=== PATIENT | male | born 1935 | race Caucasian/White ===

== ENCOUNTER 2020-04-12 20:31 | Inpatient (IN) ==
[2020-04-12 21:07] LABS: Hematocrit (blood only) 40.1 % (42-52); Hemoglobin 12.8 g/dL (14.0-18.0); Mean Corpuscular Hemoglobin 31.9 pg (25-34); Mean Corpuscular Hgb Conc 31.9 g/dL (32-36); Mean Platelet Volume 9.9 fL (7.4-10.4); Nucleated RBC # (auto) 0.05 K/uL (0-0); Nucleated RBC % (auto) 0.2 %; Platelet Count 489 K/uL (130-400); RDW Coefficient of Variation 17.6 % (11.5-14.5); RDW Standard Deviation 64.3 fL (36.4-46.3); Red Blood Count 4.01 M/uL (4.7-6.1); White Blood Count 27.06 K/uL (4.8-10.8)
[2020-04-12] MEDS ORDERED: PIPERACILL/TAZOBAC CONSULT ACTIVE PRN (21:17)
[2020-04-12] MEDS ORDERED: DEXAMETHASONE SOD INJ 10 MG/ML VIAL IV ONE (21:17)
[2020-04-12] MEDS ORDERED: PIPERACILLIN/TAZOBACTAM 4.5 GM/120 ML BAG IV ONE (21:17)
[2020-04-12 21:24] LABS: Albumin Level 3.1 gm/dl (3.4-5.0); Calcium 8.4 mg/dl (8.5-10.1); Creatinine Clr Calc Pharmacy 60.5 ml/min; Est GFR (African American) 92.9; Est GFR (Non-African American) 80.2; Magnesium 1.8 mg/dl (1.8-2.4); Potassium 4.7 mmol/L (3.5-5.1)
[2020-04-12 21:25] LABS: INR 3.9 (0.9-1.1); Partial Thromboplastin Ratio 1.6; Partial Thromboplastin Time 43.7 Seconds (21.0-31.0); Prothrombin Time 38.2 Seconds (9.0-12.0)
[2020-04-12 21:29] LABS: Albumin Globulin Ratio 0.6 (0.9-2); Bilirubin,Total 0.6 mg/dl (0.2-1); Total Protein 8.1 gm/dl (6.4-8.2); Troponin I 0.024 ng/ml (0-0.045)
[2020-04-12 21:45] LABS: Basophils # (auto) 0.03 K/uL (0-0.2); Basophils % (auto) 0.1 %; Eosinophils # (auto) 0.05 K/uL (0-0.5); Eosinophils % (auto) 0.2 %; Immature Granulocytes # (auto) 0.09 K/uL (0.00-0.02); Immature Granulocytes % (auto) 0.3 %; Lymphocytes % (auto) 4.1 %; Monocytes # (auto) 1.18 K/uL (0.11-0.59); Monocytes % (auto) 4.4 %; Neutrophils # (auto) 24.61 K/uL (1.4-6.5); Neutrophils % (auto) 90.9 %
--- NOTE | 2020-04-12 21:55 | Emergency Department Note ---
Impression & Plan Respiratory failure, Pulmonary edema, Pneumonia ED Provider Note NAME: CELY SIMON AGE: 84 SEX: M : 1935 ARRIVES VIA: Ambulance INFORMANT: Patient, patient's son ED PROVIDER(S): Francisco Redding DO CHIEF COMPLAINT: Chest pain HPI: The patient is an 84-year-old male who presented to the emergency department for evaluation of difficulty breathing and chest pain. The patient started to describe difficulty breathing earlier today. His symptoms worsened acutely prior to arrival. The patient arrived via ambulance. He was very tachypneic and was unable to give most of the history. His son did present to be with him and gives most of the history. Apparently patient does have a history of tobacco use and COPD but also has a history of valve replacement. He has no specific history of pulmonary edema or CHF according to the patient's son. He complains of right-sided chest pain. He denies having any fever or cou gh. He denies having any lower extremity edema which is worsened compared to previous. He does have a history of atrial fibrillation and takes Coumadin. He states he has been compliant with his medications. He states his symptoms are moderate to severe at this time. He states his symptoms are worsened with any exertion whatsoever. ROS: See above HPI for pertinent positives & negatives. A total of 10 systems reviewed and were otherwise negative. PAST MEDICAL HISTORY: See Below PAST SURGICAL HISTORY: See Below FAMILY HISTORY: See Below SOCIAL HISTORY: See Below HOME MEDICATIONS: See Below ALLERGIES: See Below VITALS: See Below PHYSICAL EXAMINATION: GENERAL: The patient is awake and alert. He is very anxious appearing and appears to be having severe difficulty breathing. EYES: The conjunctivae are clear. The pupils are round and reactive. EARS, NOSE, MOUTH AND THROAT: The nose is without any evidence of any deformity. NECK: The neck is nontender and supple. RESPIRATORY: Diminished breath sounds are noted throughout. There were rales in all lung booth. Significant retractions and conversational dyspnea was noted. CARDIOVASCULAR: Tachycardic and irregular rhythm was noted to auscultation.. GASTROINTESTINAL: The abdomen is soft. Abdomen is nontender. MUSCULOSKELETAL/EXTREMITIES: There is no evidence of gross deformity full range of motion is noted in the hips and shoulders. SKIN: Skin is cool and dry. There is pedal edema bilaterally. NEUROLOGIC: Patient is awake alert and oriented x3. MEDICAL DECISION MAKING: The patient is an 84-year-old male who presented to the emergency department by ambulance for an evaluation of shortness of breath. 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 The patient also has a chest x-ray that I feel is consistent with pneumonia. I discussed the patient's laboratory and radiographic studies with him and his son. He was treated with BiPAP. He was also treated with IV antibiotics and IV Decadron. He was reevaluated multiple times. The patient's health is very poor. He does have significant cardiac history as well. His EKG is very abnormal but I am unsure if this is new as we do not have an old EKG. I discussed this case with the on-call [facility] hospitalist. They will evaluate the patient in the emergency department for further management and disposition. The patient was also treated with his pain medication. He has chronic back pain. He has a history of metastatic colon cancer. Triage Nursing notes reviewed. Prior medical records reviewed Vital Signs: reviewed and remarkable for tachypnea, hypoxia, tachycardia, and elevated blood pressure. Differential diagnosis: Reactive airway disease, pneumonia, pneumothorax, COPD, CHF, infections, cardiac ischemia, pulmonary embolism, musculoskeletal, gastrointestinal, as well as other pathologies. ER treatment provided: See below Diagnostics interpreted by me: ECG: EKG was obtained in the emergency department. My interpretation is atrial fibrillation at 111 bpm. There were no PVCs noted. Incomplete left bundle branch block pattern was noted. Low lateral ST depressions with T wave versions were noted. No previous tracing was available. Cardiac Monitoring: An order was placed for continuous cardiac monitoring. The monitor shows a rate of 130 bpm with atrial fibrillation rhythm. Laboratory studies: As stated above and show below. Imaging studies: See below Consultation(s): The [facility] hospitalist group was consulted about the patient the [facility]ist group was consulted about the patient's condition. They will evaluate the patient in the emergency department for further management. ED COURSE: Procedures: none PDMP:reviewed and no issues Critical Care: I have personally spent greater than 45 minutes of critical care time in the direct management of this patient. This includes bedside care, interpretation of diagnostic studies, and testing, discussion with consultants, patient, and family members, and other required patient management activities. This 45 minutes is in excess of all separately billable procedures. Past Med/Surg History Medical History Atrial fibrillation Chronic anticoagulation Chronic anticoagulation Chronic low back pain 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 Metastatic colon cancer to liver Tobacco use Surgical History Heart valve replaced Mechanical heart valve present Social History Smoking Status: Current every day smoker Preferred Language: Cuban Feels Safe at Home: Yes Allergies Allergies Allergy/AdvReac Type Severity Reaction Status Date / Time No Known Allergies Allergy Unverified 04/12/20 22:36 Home Meds Home Medications Medication Instructions Recorded Confirmed amiodarone 200 mg PO DAILY 04/12/20 04/12/20 fentanyl 1 patch TOPICAL [id number] 04/12/20 04/12/20 finasteride 5 mg PO DAILY 04/12/20 04/12/20 fluticasone propion-salmeterol 1 ea INHALATION BID 04/12/20 04/12/20 hydrocodone-acetaminophen 1 tab PO Q6 PRN 04/12/20 04/12/20 metoprolol succinate [Toprol XL] 25 mg PO DAILY 04/12/20 04/12/20 rosuvastatin 10 mg PO DAILY 04/12/20 04/12/20 temazepam [Restoril] 30 mg PO HS 04/12/20 04/12/20 warfarin [Jantoven] 3 mg PO SUMOWEFRSA 04/12/20 04/12/20 warfarin [Jantoven] 6 mg PO TUTH 04/12/20 04/12/20 Results & Data (ED) Vital Signs Vital Signs - 24 hr 04/12/20 20:31 04/12/20 20:47 04/12/20 20:53 Temperature 36.8 C Temperature Source Oral Pulse Rate 121 H 109 H 121 H Pulse Rate from SpO2 Sensor 111 H Pulse Rhythm Regular Regular Respiratory Rate 33 H 54 H 33 H Respiratory Effort / Characteristics Spontaneous Accessory Muscle Use Labored Short of Breath Spontaneous Accessory Muscle Use Labored Short of Breath Respiratory Depth Normal Respiratory Pattern Regular Blood Pressure 178/89 H 178/89 H Blood Pressure Mean 118 103 Pulse Oximetry 88 L 87 L 95 Oxygen Delivery Method Oxymask BiPAP BiPAP Oxygen Flow Rate 10 Fraction of Inspired Oxygen Sepsis Recent Fever Within 48 Hours No Sepsis New/Unexplained Change in Mental Status No Sepsis Action Taken by Nursing Physician Notified Pulse Oximetry Post Tiitration 95 04/12/20 21:17 04/12/20 21:23 04/12/20 21:32 Temperature Temperature Source Pulse Rate 124 H 122 H Pulse Rate from SpO2 Sensor 112 H Pulse Rhythm Respiratory Rate 33 H 33 H 38 H Respiratory Effort / Characteristics Spontaneous Labored Short of Breath Tripoding Spontaneous Labored Short of Breath Tripoding Respiratory Depth Respiratory Pattern Blood Pressure 143/68 H Blood Pressure Mean 88 Pulse Oximetry 94 94 94 Oxygen Delivery Method BiPAP Oxygen Flow Rate Fraction of Inspired Oxygen 70 70 Sepsis Recent Fever Within 48 Hours Sepsis New/Unexplained Change in Mental Status Sepsis Action Taken by Nursing Pulse Oximetry Post Tiitration 04/12/20 21:53 04/12/20 22:00 04/12/20 22:15 Temperature Temperature Source Pulse Rate 110 H 109 H Pulse Rate from SpO2 Sensor 106 H 116 H Pulse Rhythm Respiratory Rate 33 H 22 27 H Respiratory Effort / Characteristics Spontaneous Labored Short of Breath Tripoding Spontaneous Labored Short of Breath Tripoding Respiratory Depth Respiratory Pattern Blood Pressure 166/69 H 129/71 Blood Pressure Mean 76 88 Pulse Oximetry 94 92 94 Oxygen Delivery Method BiPAP BiPAP Oxygen Flow Rate 10 Fraction of Inspired Oxygen 70 70 Sepsis Recent Fever Within 48 Hours Sepsis New/Unexplained Change in Mental Status Sepsis Action Taken by Nursing Pulse Oximetry Post Tiitration 04/12/20 22:16 04/12/20 22:30 04/12/20 22:31 Temperature Temperature Source Pulse Rate 105 H 106 H 98 H Pulse Rate from SpO2 Sensor 101 H 105 H 98 H Pulse Rhythm Respiratory Rate 28 H 26 H 35 H Respiratory Effort / Characteristics Respiratory Depth Respiratory Pattern Blood Pressure 130/59 L Blood Pressure Mean 77 Pulse Oximetry 94 92 93 Oxygen Delivery Method Oxygen Flow Rate Fraction of Inspired Oxygen Sepsis Recent Fever Within 48 Hours Sepsis New/Unexplained Change in Mental Status Sepsis Action Taken by Nursing Pulse Oximetry Post Tiitration 04/12/20 22:45 04/12/20 22:46 04/12/20 23:00 Temperature Temperature Source Pulse Rate 102 H 99 H 95 H Pulse Rate from SpO2 Sensor 96 H 94 H 91 H Pulse Rhythm Respiratory Rate 29 H 36 H 32 H Respiratory Effort / Characteristics Respiratory Depth Respiratory Pattern Blood Pressure 118/49 L 98/68 L Blood Pressure Mean 61 88 Pulse Oximetry 94 94 95 Oxygen Delivery Method Oxygen Flow Rate Fraction of Inspired Oxygen Sepsis Recent Fever Within 48 Hours Sepsis New/Unexplained Change in Mental Status Sepsis Action Taken by Nursing Pulse Oximetry Post Tiitration 04/12/20 23:01 04/12/20 23:15 Temperature Temperature Source Pulse Rate 87 95 H Pulse Rate from SpO2 Sensor 91 H Pulse Rhythm Respiratory Rate 30 H 28 H Respiratory Effort / Characteristics Respiratory Depth Respiratory Pattern Blood Pressure Blood Pressure Mean Pulse Oximetry 95 Oxygen Delivery Method Oxygen Flow Rate Fraction of Inspired Oxygen Sepsis Recent Fever Within 48 Hours Sepsis New/Unexplained Change in Mental Status Sepsis Action Taken by Nursing Pulse Oximetry Post Tiitration Home Medications Current Medication List: was personally reviewed by me Additional Comments: 1 view chest x-ray was obtained in the emergency department. My interpretation is cardiomegaly with previous cardiothoracic surgery was noted. There was bibasilar infiltrates noted right greater than left. There was increased bowel gas noted in the upper abdomen. This could be consistent with volume overload versus parenchymal infiltrate. Laboratory Data Attestation: I reviewed the patient's lab results. Result diagrams: 04/12/20 20:57 04/12/20 20:57 Lab Results 04/12/20 04/12/20 04/12/20 Range/Units 20:57 20:57 20:57 WBC 27.06 H (4.8-10.8) K/uL RBC 4.01 L (4.7-6.1) M/uL Hgb 12.8 L (14.0-18.0) g/dL Hct 40.1 L (42-52) % MCV 100.0 (80-100) fL MCH 31.9 (25-34) pg MCHC 31.9 L (32-36) g/dL RDW Std Deviation 64.3 H (36.4-46.3) fL RDW Coeff of Mohamud 17.6 H (11.5-14.5) % Plt Count 489 H (130-400) K/uL MPV 9.9 (7.4-10.4) fL Immature Gran % (Auto) 0.3 % Neut % (Auto) 90.9 % Lymph % (Auto) 4.1 % Hale % (Auto) 4.4 % Eos % (Auto) 0.2 % Baso % (Auto) 0.1 % Neut # (Auto) 24.61 H (1.4-6.5) K/uL Lymph # (Auto) 1.10 L (1.2-3.4) K/uL Hale # (Auto) 1.18 H (0.11-0.59) K/uL Eos # (Auto) 0.05 (0-0.5) K/uL Baso # (Auto) 0.03 (0-0.2) K/uL Immature Gran # (Auto) 0.09 H (0.00-0.02) K/uL Absolute Nucleated RBC 0.05 H (0-0) K/uL Nucleated RBC % (auto) 0.2 % PT 38.2 H (9.0-12.0) Seconds INR 3.9 H (0.9-1.1) APTT 43.7 H (21.0-31.0) Seconds PTT Ratio 1.6 Sodium 138 (136-145) mmol/L Potassium 4.7 (3.5-5.1) mmol/L Chloride 107 (98-107) mmol/L Carbon Dioxide 25 (21-32) mmol/L Anion Gap 6.0 (3-11) BUN 18 (7-18) mg/dl Creatinine 0.86 (0.6-1.4) mg/dl Est Cr Clr Drug Dosing 60.5 ml/min Est GFR ( Amer) 92.9 Est GFR (Non-Af Amer) 80.2 BUN/Creatinine Ratio 21.0 H (10-20) Glucose 165 H (70-99) mg/dl Lactate (0.4-2.0) mmol/L Calcium 8.4 L (8.5-10.1) mg/dl Magnesium 1.8 (1.8-2.4) mg/dl Total Bilirubin 0.6 (0.2-1) mg/dl AST 14 L (15-37) U/L ALT 12 (12-78) U/L Alkaline Phosphatase 116 (45-117) U/L Troponin I 0.024 (0-0.045) ng/ml NT-Pro-B Natriuret Pep 4191 H (0-1800) pg/ml Total Protein 8.1 (6.4-8.2) gm/dl Albumin 3.1 L (3.4-5.0) gm/dl Globulin 5.0 H (2.5-4.0) gm/dl Albumin/Globulin Ratio 0.6 L (0.9-2) Procalcitonin (0-0.5) ng/ml COVID-19 Eval Order SARS-CoV-2, RNA, NAAT (NEGATIVE) 04/12/20 04/12/20 04/12/20 Range/Units 20:57 20:57 21:08 WBC (4.8-10.8) K/uL RBC (4.7-6.1) M/uL Hgb (14.0-18.0) g/dL Hct (42-52) % MCV (80-100) fL MCH (25-34) pg MCHC (32-36) g/dL RDW Std Deviation (36.4-46.3) fL RDW Coeff of Mohamud (11.5-14.5) % Plt Count (130-400) K/uL MPV (7.4-10.4) fL Immature Gran % (Auto) % Neut % (Auto) % Lymph % (Auto) % Hale % (Auto) % Eos % (Auto) % Baso % (Auto) % Neut # (Auto) (1.4-6.5) K/uL Lymph # (Auto) (1.2-3.4) K/uL Hale # (Auto) (0.11-0.59) K/uL Eos # (Auto) (0-0.5) K/uL Baso # (Auto) (0-0.2) K/uL Immature Gran # (Auto) (0.00-0.02) K/uL Absolute Nucleated RBC (0-0) K/uL Nucleated RBC % (auto) % PT (9.0-12.0) Seconds INR (0.9-1.1) APTT (21.0-31.0) Seconds PTT Ratio Sodium (136-145) mmol/L Potassium (3.5-5.1) mmol/L Chloride (98-107) mmol/L Carbon Dioxide (21-32) mmol/L Anion Gap (3-11) BUN (7-18) mg/dl Creatinine (0.6-1.4) mg/dl Est Cr Clr Drug Dosing ml/min Est GFR ( Amer) Est GFR (Non-Af Amer) BUN/Creatinine Ratio (10-20) Glucose (70-99) mg/dl Lactate 2.2 H* (0.4-2.0) mmol/L Calcium (8.5-10.1) mg/dl Magnesium (1.8-2.4) mg/dl Total Bilirubin (0.2-1) mg/dl AST (15-37) U/L ALT (12-78) U/L Alkaline Phosphatase (45-117) U/L Troponin I (0-0.045) ng/ml NT-Pro-B Natriuret Pep (0-1800) pg/ml Total Protein (6.4-8.2) gm/dl Albumin (3.4-5.0) gm/dl Globulin (2.5-4.0) gm/dl Albumin/Globulin Ratio (0.9-2) Procalcitonin < 0.05 (0-0.5) ng/ml COVID-19 Eval Order Covid19 IDNow atMOHC SARS-CoV-2, RNA, NAAT (NEGATIVE) 04/12/20 04/12/20 Range/Units 21:08 23:09 WBC (4.8-10.8) K/uL RBC (4.7-6.1) M/uL Hgb (14.0-18.0) g/dL Hct (42-52) % MCV (80-100) fL MCH (25-34) pg MCHC (32-36) g/dL RDW Std Deviation (36.4-46.3) fL RDW Coeff of Mohamud (11.5-14.5) % Plt Count (130-400) K/uL MPV (7.4-10.4) fL Immature Gran % (Auto) % Neut % (Auto) % Lymph % (Auto) % Hale % (Auto) % Eos % (Auto) % Baso % (Auto) % Neut # (Auto) (1.4-6.5) K/uL Lymph # (Auto) (1.2-3.4) K/uL Hale # (Auto) (0.11-0.59) K/uL Eos # (Auto) (0-0.5) K/uL Baso # (Auto) (0-0.2) K/uL Immature Gran # (Auto) (0.00-0.02) K/uL Absolute Nucleated RBC (0-0) K/uL Nucleated RBC % (auto) % PT (9.0-12.0) Seconds INR (0.9-1.1) APTT (21.0-31.0) Seconds PTT Ratio Sodium (136-145) mmol/L Potassium (3.5-5.1) mmol/L Chloride (98-107) mmol/L Carbon Dioxide (21-32) mmol/L Anion Gap (3-11) BUN (7-18) mg/dl Creatinine (0.6-1.4) mg/dl Est Cr Clr Drug Dosing ml/min Est GFR ( Amer) Est GFR (Non-Af Amer) BUN/Creatinine Ratio (10-20) Glucose (70-99) mg/dl Lactate 1.2 (0.4-2.0) mmol/L Calcium (8.5-10.1) mg/dl Magnesium (1.8-2.4) mg/dl Total Bilirubin (0.2-1) mg/dl AST (15-37) U/L ALT (12-78) U/L Alkaline Phosphatase (45-117) U/L Troponin I (0-0.045) ng/ml NT-Pro-B Natriuret Pep (0-1800) pg/ml Total Protein (6.4-8.2) gm/dl Albumin (3.4-5.0) gm/dl Globulin (2.5-4.0) gm/dl Albumin/Globulin Ratio (0.9-2) Procalcitonin (0-0.5) ng/ml COVID-19 Eval Order SARS-CoV-2, RNA, NAAT NEGATIVE (NEGATIVE) Administered Medications Fentanyl Citrate (Fentanyl Citrate 100 Mcg/2 Ml Vial) 100 mcg IV Q15M PRN PRN Reason: Pain Stop: 04/26/20 22:15 Last Admin: 04/12/20 22:25 Dose: 100 mcg Documented by: [id number] Discontinued Medications Dexamethasone (Dexamethasone Sod Inj 10 Mg/Ml Vial) 10 mg IV NOW ONE Stop: 04/12/20 21:18 Last Admin: 04/12/20 21:52 Dose: 10 mg Documented by: [id number] Piperacillin Sod/Tazobactam Sod (Zosyn) 4.5 gm in 120 mls @ 240 mls/hr IV NOW ONE Stop: 04/12/20 21:46 Last Infusion: 04/12/20 22:41 Dose: 0 mls/hr Documented by: [id number] Infusion: 04/12/20 22:09 Dose: 240 mls/hr Documented by: [id number] Infusion: 04/12/20 21:52 Dose: 0 mls/hr Documented by: [id number] Admin: 04/12/20 21:52 Dose: 240 mls/hr Documented by: [id number] Imaging Data Attestation: I personally reviewed and interpreted this imaging study as follows: My Impression: 1 view the chest x-ray was obtained in the emergency department. My interpretation is cardiomegaly. Previous cardiothoracic surgery was noted. Bilateral lower infiltrates were noted right greater than left. Increased bowel gas was noted in the upper abdomen. No free air was noted. Blood Pressure Blood Pressure Findings: Elevated blood pressure Blood Pressure Disposition: further management by hospitalist Discharge Plan Visit Data Chief Complaint: Shortness of Breath/Dyspnea Stated Complaint: chest pain ED Provider: Francisco Redding Discharge Problem: Respiratory failure, Pulmonary edema, Pneumonia Patient Disposition: Being Evaluated by Hospitalist Condition: Good Forms Stand Alone Forms: My [facility] Prescriptions Prescriptions: No Action fluticasone propion-salmeterol 250-50 mcg/dose blister with device 1 ea INHALATION BID RF: 0 hydrocodone-acetaminophen 10-325 mg tablet 1 tab PO Q6 PRN (Reason: Pain) RF: 0 fentanyl 75 mcg/hr patch 72 hour 1 patch topical [id number] RF: 0 finasteride 5 mg tablet 5 mg PO DAILY RF: 0 amiodarone 200 mg tablet 200 mg PO DAILY RF: 0 warfarin [Jantoven] 3 mg tablet 6 mg PO TUTH RF: 0 warfarin [Jantoven] 3 mg tablet 3 mg PO SUMOWEFRSA RF: 0 temazepam [Restoril] 30 mg capsule 30 mg PO HS RF: 0 metoprolol succinate [Toprol XL] 25 mg tablet extended release 24 hr 25 mg PO DAILY RF: 0 rosuvastatin 10 mg tablet 10 mg PO DAILY RF: 0 Referrals Referrals: Dominic Phelps PA-C [Primary Care Provider] - Discharge Problem: Respiratory failure Qualifiers: Chronicity: acute Respiratory failure complication: hypoxia Qualified Code(s): J96.01 - Acute respiratory failure with hypoxia Pulmonary edema Qualifiers: Chronicity: acute Qualified Code(s): J81.0 - Acute pulmonary edema Pneumonia Qualifiers: Pneumonia type: due to unspecified organism Laterality: right Lung location: lower lobe of lung Qualified Code(s): J18.9 - Pneumonia, unspecified organism
[2020-04-12] MEDS ORDERED: fentaNYL citrate 100 MCG/2 ML VIAL IV PRN (22:16)
--- NOTE | 2020-04-12 23:29 | History & Physical Report ---
Date of Service April 12, 2020 Assessment & Plan (1) Acute hypoxemic respiratory failure: Patient with supratherapeutic INR on admissionPatient is an 84-year-old male with a past medical history of a current smoker, with COPD, currently treated with fluticasone salmeterol, remote history of pulmonary and bowel cancer which is currently in remission, patient has a history of chronic back pain for which he takes hydrocodone 1 tab every 6 as needed, hyperlipidemia, atrial fibrillation chronically anticoagulated on warfarin, history of experimental valve replacement with [facility] in the past, BPH on finasteride the patient presents this evening with acute hypoxic respiratory distress with acute onset. #New onset acute hypoxemic respiratory failure secondary to pneumonia in the setting of chronic COPD See HPI above, on presentation the emergency department the patient was saturati ng in the low 80s with increased work of breathing tachycardic and tachypneic. He was placed on BiPAP 70 FiO2 flow rate 10 L and his tachypnea improved however the patient still tachycardic maintaining saturations in the 92. Given his history of smoking, imaging findings, white count, it is likely this patient has developed a pneumonia. Given the acuteness and severity of this will be covering with triple antibiotic therapy, vancomycin, Zosyn. Hopefully we can wean the patient from BiPAP slowly overnight. I did advise the patient's family that it is possible the patient will need to become intubated for a short period of time in order to allow his lungs to rest and recover. The patient and his family were both agreeable to this however stated they did not want CPR or cardiac defibrillation to be used in the event the patient's heart should stop. Patient received dexamethasone 10 mg, and a dose of Zosyn in the ED. -Wean from BiPAP as tolerated as needed O2 as needed -Zosyn -Vancomycin -Narrow ABX pending culture results -IV Solu-Medrol 40 mg twice daily -Respiratory therapy -Follow-up cultures -Chest x-ray in the morning -Trend CBC -duonebs q4h #Dehydration Patient had very dark urine during the exam, no history of kidney disease, creatinine was within normal limits, patient also examined dry furthermore he is on BiPAP and unable to obtain hydration. He has no history for CHF, however does have some concerning signs or symptoms to that effect will provide gentle fluid hydration @100, and monitor urine output. -Lactated Ringer's at 100 -Reassess need for fluids in the morning -Monitor output #COPD Patient is a chronic smoker with a history of COPD per family is well controlled on outpatient meds, continue these medications while hospitalized. -Continue home inhalers -duonebs q4h #Active smoker Patient is a current smoker, this likely contributed to his current presentation, strongly recommend smoking cessation counseling to the patient. #Chronic pain Patient reports a history of chronic back pain that was previously controlled on fentanyl transdermal patch and now on hydrocodone every 6 as needed. Given the patient's current presentation obviously we would like to avoid overmedicating him with opiates given the effect of respiratory depression however this patient is on a high daily opioid burden and thus will likely experience withdrawal if some level of opiates or not provided. He is currently receiving approximately 40 morphine equivalents per day to that extent we will provide morphine 2 mg or morphine 4 mg every 3 hours as needed based on pain. -Monitor for signs and symptoms of respiratory depression #BPH -Continue finasteride #Anxiety Patient is a longstanding history of temazepam 30 mg p.o. at bedtime, given the effect on respiratory depression obviously we would like to avoid this however given his extensive history there could be a potential for withdrawal symptoms. To that effect we will hold the medication for now. We will have a as needed 0.5 mg IV Ativan order in the event that he experiences withdrawal symptoms. -As needed 0.5 mg for withdrawal symptoms #Supratherapeutic INR Had a supratherapeutic INR on admission of 3.9. Will hold Coumadin tomorrow Daily PT/INR. -Hold Coumadin, restart when INR is appropriate -Daily PT/INR #Atrial fibrillation Currently in normal sinus rhythm, takes amiodarone 200 mg p.o. daily and is chronically anticoagulated with warfarin. -Continue amiodarone FENa: N.p.o. until off BiPAP, LR at 100 Code Status: Conditional code, no cardiac defibrillation or CPR, however requests intubation and ventilation DVT PPX: On Coumadin, holding given supratherapeutic INR PT/OT: Ordered Dispo: Telemetry Mike Balderas MD PGY 2, FCM This chart was completed utilizing [employer] voice recognition software. Grammatical errors, random word insertions, pronoun errors, and in complete sentences are an occasional consequence of the system. Any questions or concerns about the content, text, or information contained within the body of this dictation should be addressed directly to the physician for clarification. (2) Pneumonia: (3) Smoker: (4) COPD (chronic obstructive pulmonary disease): (5) Chronic pain: (6) Atrial fibrillation: (7) Supratherapeutic INR: (8) BPH (benign prostatic hyperplasia): (9) Anxiety: (10) Chronic anticoagulation: History of Present Illness Patient is an 84-year-old male with a past medical history of a current smoker, with COPD, currently treated with fluticasone salmeterol, remote history of pulmonary and bowel cancer which is currently in remission, patient has a history of chronic back pain for which he takes hydrocodone 1 tab every 6 as needed, hyperlipidemia, atrial fibrillation chronically anticoagulated on warfarin, history of experimental valve replacement with [facility] in the past, BPH on finasteride the patient presents this evening with acute hypoxic respiratory distress with acute onset. The patient was on BiPAP when I entered the room, the history was mainly obtained from his son who was present with him. Per his son the patient has been in his usual state of health although has been producing more phlegm while smoking cigarettes outside. This evening earlier in the evening he had a very significant productive coughing fit with shortness of breath and hemoptysis. His shortness of breath progressively worsened and an ambulance was called where he presented to [facility] in the emergency department. In the emergency department initially he was tachypneic and tachycardic, he was placed on BiPAP, and his saturations and tachycardia improved. Imaging was obtained concerning for pneumonia demonstrating bilateral infiltrates right greater than left. There is no overt evidence of CHF.Labs were obtained demonstrating a white blood cell count of 27.06, with a neutrophil predominance. INR was 3.9 Chem-7 was within normal limits, lactate 2.2, calcium 8.4 BNP was 4191, patient was Covid negative. Primary team was called for admission patient will be admitted to telemetry on BiPAP. Patient specifically denies any CHF history. Primary Care Provider: Dominic Phelps PA-C Allergies Allergy/AdvReac Type Severity Reaction Status Date / Time No Known Allergies Allergy Unverified 04/12/20 22:36 Home Medications Medication Instructions Recorded Confirmed Type amiodarone 200 mg PO DAILY 04/12/20 04/12/20 History fentanyl 1 patch TOPICAL [id number] 04/12/20 04/12/20 History finasteride 5 mg PO DAILY 04/12/20 04/12/20 History fluticasone propion-salmeterol 1 ea INHALATION BID 04/12/20 04/12/20 History hydrocodone-acetaminophen 1 tab PO Q6 PRN 04/12/20 04/12/20 History metoprolol succinate [Toprol XL] 25 mg PO DAILY 04/12/20 04/12/20 History rosuvastatin 10 mg PO DAILY 04/12/20 04/12/20 History temazepam [Restoril] 30 mg PO HS 04/12/20 04/12/20 History warfarin [Jantoven] 3 mg PO SUMOWEFRSA 04/12/20 04/12/20 History warfarin [Jantoven] 6 mg PO TUTH 04/12/20 04/12/20 History Past Med/Surg History Medical History Atrial fibrillation Chronic anticoagulation Chronic anticoagulation Chronic low back pain 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 Metastatic colon cancer to liver Tobacco use Surgical History Heart valve replaced Mechanical heart valve present Social History Smoking Status: Current every day smoker Cigarettes Per Day: 3; Do You Dip or Chew Tobacco: No; Hx Alcohol Use: No Hx Substance Use: No Preferred Language: Indonesian Communication Ability: Effective Brainer Required: No Beliefs That Will Affect Care: None Current Living Situation: Spouse Other Information That Helps Us Care for You: No Feels Safe at Home: Yes Safety Concerns: Feels Safe At This Time Assistive Devices: Oxygen - Continuous Review of Systems Review of Systems: All systems reviewed & are unremarkable except as noted in HPI & below Physical Exam Physical Exam: General: In respiratory distress stress, breathing better on BiPAP, able to converse HEENT: Normocephalic atraumatic Neck: Normal to visual inspection, trachea midline, did not appreciate JVD Cardiac: Tachycardic otherwise regular rate and rhythm, I did not appreciate any significant murmurs rubs or gallops, normal S1, normal S2, pedal edema 1+ bilaterally, no calf tenderness Respiratory: Wheezes rales or rhonchi heard throughout bilateral lung booth, consistent with COPD and consolidation GI: Soft, nontender, nondistended bowel sounds present MSK: Moves all extremities Neuro: Alert and oriented x4 Psych: Calm and cooperative Results & Data Results & Data ([facility]) Vital Signs (Past 12 Hours) Vital Signs Temp Pulse Resp BP Pulse Ox 04/12/20 22:00 110 H 22 166/69 H 92 04/12/20 21:53 33 H 94 04/12/20 21:32 122 H 38 H 143/68 H 94 04/12/20 21:23 33 H 94 04/12/20 21:17 124 H 33 H 94 04/12/20 20:53 121 H 33 H 95 04/12/20 20:47 109 H 54 H 178/89 H 87 L 04/12/20 20:31 36.8 C 121 H 33 H 178/89 H 88 L Code Status & VTE Plan Code Status Additional code patient does not want CPR or cardiac defibrillation however would like a trial of intubation VTE Prophylaxis Plan VTE Prophylaxis will be ordered: Yes Supervising Physician Co-Signing Physician Notes Attending addendum: I have physically seen this patient, have supervised the medical residents activities, and agree with the H&P unless as otherwise noted. Assessment and Plan: Acute respiratory failure with hypoxia/multifocal pneumonia/COPD- Improved oxygenation with BiPAP, will try to taper to nasal cannula oxygen as symptoms improve. Duonebs every 4 hours while awake and every 2 hours when necessary. Zosyn 4.5 g IV every 8 hours Vancomycin IV per pharmacokinetic monitoring Azithromycin 500 mg IV daily Methylprednisolone 40 mg IV every 12 hours Tobacco cessation counseling Sputum Gram stain and culture serial imaging studies Remaining orders and notations as noted Resident Activity Tracking Resident Involvement: Resident Care Provided Care Provided: Adult Hospital Medicine (1) Pneumonia Laterality: right Lung location: lower lobe of lung Pneumonia type: due to unspecified organism Qualified Code(s): J18.9 - Pneumonia, unspecified organism
[2020-04-13] MEDS ORDERED: MoRPHine SULFATE 2 MG/ML CARP IV PRN (01:05)
[2020-04-13] MEDS ORDERED: ONDANSETRON INJ 2 MG/ML 2 ML VIAL IV PRN (01:05)
[2020-04-13] MEDS ORDERED: MoRPHine SULFATE 4 MG/ML 1 ML CARP\\VIAL IV PRN (01:05)
[2020-04-13] MEDS ORDERED: VANCOMYCIN CONSULT ACTIVE PRN (01:05)
[2020-04-13] MEDS ORDERED: ACETAMINOPHEN 325 MG TAB PO PRN (01:05)
[2020-04-13] MEDS ORDERED: PIPERACILL/TAZOBAC CONSULT ACTIVE PRN (01:05)
[2020-04-13] MEDS ORDERED: PNEUMOCOCCAL POLYSACCHARIDES 25 MCG/0.5 ML VIAL/SYR IM ONE (01:18)
[2020-04-13] MEDS ORDERED: PNEUMOCOCCAL ADMINISTRATION CHARGE ONE (01:18)
[2020-04-13] MEDS ORDERED: VANCOMYCIN HCL 1,500 MG in SODIUM CHLORIDE 0.9% 500 ML IV STA (01:51)
[2020-04-13] MEDS: ALBUT/IPRATROP 3MG/0.5MG NEB 3 ML VIAL NEB SCH ×5 (02:01→19:32)
[2020-04-13] MEDS: LACTATED RINGER'S 1,000 ML IV SCH ×2 (02:14→14:15)
[2020-04-13] MEDS ORDERED: PIPERACILLIN/TAZOBACTAM 3.375 GM in DEXTROSE 5% 100 ML IV SCH (04:00)
[2020-04-13 05:30] LABS: Appearance Urine Cloudy (Clear); Bacteria Urine Automated 2+ (Negative); Bilirubin Urine Negative (Negative); Blood Urine 3+ (Negative); Color Urine Dark Yellow; Glucose Urine UA Negative (Negative); Ketones Urine Trace (Negative); Leukocyte Esterase Urine 1+ (Negative); Nitrite Urine Positive (Negative); Protein Urine 1+ (Negative); Specific Gravity Urine 1.029 (1.000-1.030); Urobilinogen Urine Negative (Negative); WBC Urine Automated >30 /hpf (0-5)
[2020-04-13 05:31] LABS: Albumin Level 2.6 gm/dl (3.4-5.0); BUN Creatinine Ratio 32.1 (10-20); Creatinine Clr Calc Pharmacy 70.2 ml/min; Est GFR (African American) 101.8; Est GFR (Non-African American) 87.8; Potassium 4.2 mmol/L (3.5-5.1)
[2020-04-13 05:34] LABS: Albumin Globulin Ratio 0.6 (0.9-2); Bilirubin,Total 0.8 mg/dl (0.2-1); Globulin 4.3 gm/dl (2.5-4.0); Total Protein 6.9 gm/dl (6.4-8.2)
[2020-04-13 05:45] LABS: Basophils # (auto) 0.01 K/uL (0-0.2); Hematocrit (blood only) 35.8 % (42-52); Hemoglobin 11.6 g/dL (14.0-18.0); Immature Granulocytes # (auto) 0.24 K/uL (0.00-0.02); Immature Granulocytes % (auto) 0.6 %; Lymphocytes # (auto) 0.62 K/uL (1.2-3.4); Lymphocytes % (auto) 1.5 %; Mean Corpuscular Hemoglobin 32.1 pg (25-34); Mean Corpuscular Hgb Conc 32.4 g/dL (32-36); Mean Corpuscular Volume 99.2 fL (80-100); Mean Platelet Volume 9.6 fL (7.4-10.4); Monocytes # (auto) 0.79 K/uL (0.11-0.59); Neutrophils # (auto) 38.62 K/uL (1.4-6.5); Neutrophils % (auto) 95.9 %; Platelet Count 296 K/uL (130-400); RDW Coefficient of Variation 17.4 % (11.5-14.5); RDW Standard Deviation 62.8 fL (36.4-46.3); Red Blood Count 3.61 M/uL (4.7-6.1); White Blood Count 40.28 K/uL (4.8-10.8)
[2020-04-13 05:53] LABS: RBC Urine Automated 0-4 /hpf (0-4)
--- NOTE | 2020-04-13 07:38 | Hospitalist Progress Note ---
Date of Service April 13, 2020 Assessment & Plan (1) Acute hypoxemic respiratory failure: secondary to pneumonia and copd, marked leukocytosis We are able to wean the patient from BiPAP dexamethasone 10 mg, and a dose of Zosyn in the ED, continues on levofloxacin -IV Solu-Medrol 40 mg twice daily pt has a history of lung cancer with mets, treated years ago with chemo, denies XRT and possibly had a liver resection, will check CT chest to eval for recurrence and also if pt may have effusion COPD Patient is a chronic smoker with a history of COPD per family is well controlled on outpatient meds, continue these medications while hospitalized. -Continue home inhalers-duonebs q4h #Active smoker Patient is a current smoker, this likely contributed to his current presentation, strongly recommend smoking cessation counseling to the patient. (2) Pneumonia: marked leukocytosis is on gram negative and atypical coverage, has mucus plugging suggested on CT will have mucinex and chest PT (3) Smoker: (4) COPD (chronic obstructive pulmonary disease): (5) Chronic pain: Patient reports a history of chronic back pain that was previously controlled on fentanyl transdermal patch and hydrocodone as needed. Anxiety, Patient is a longstanding history of temazepam 30 mg p.o. at bedtime, given the effect on respiratory depression, this is held and he will be offered as needed 0.5 mg IV Ativan order in (6) Atrial fibrillation: Amiodarone and warfarin, supratherapeutic INR, holding warfarin and follow (7) Supratherapeutic INR: holding coumadin and following INR (8) BPH (benign prostatic hyperplasia): -Continue finasteride (9) Anxiety: (10) Chronic anticoagulation: (11) DVT prophylaxis: Code Status: Conditional code, no cardiac defibrillation or CPR, however requests intubation and ventilation DVT PPX: On Coumadin, holding given supratherapeutic INR Admission and Anticipated Discharge Date Admission Date: April 12, 2020 Subjective pt feels better, he is tele overflow in the icu, did have negative mrsa swab and does have bilateral infiltrates( covid neg) so will change antibiotic coverage to gram negative and atypical with levaquin 750. pt c/o his typical chronic back pain Review of Systems Review of Systems: Moderate distress and fatigue no headache, blurry or double vision no speech or swallowing issues no chest pain, pressure or palpitations shortness of breath,cough cough or wheezes no abdominal pain, nausea or vomiting, diarrhea or constipation no dysuria, hematuria or frequency no focal joint pain or swelling chronic back pain, CVA tenderness or radicular pain no bruising, bleeding or rashes no focal signs of weakness or numbness or altered sensation no complaints of anxiety or depression.. Physical Exam Physical Exam: The patient appeared thin and with moderate respiratory distress Vital signs as documented. Head exam is normocephalic atraumatic no scleral icterus Neck is without JVD, thyromegaly, or carotid bruits. Lungs are poor air movement with bibasilar rales left greater than right Cardiac exam, Rhythm is regular.. Systolic ejection murmur is heard Abdominal exam reveals normal bowel sounds, soft non tender, no masses Extremities are nonedematous and both pedal pulses are present Neurologic exam is alert and oriented, no focal loss of strength or sensation Skin is without bruises or rashes Psychologically is without concerns for anxiety or depression. Results & Data Results & Data ([facility]) Vital Signs (Past 12 Hours) Vital Signs Temp Pulse Pulse Pulse Resp BP BP 04/13/20 02:01 83 22 04/13/20 01:58 85 20 04/13/20 01:05 04/13/20 01:03 98.4 F 90 22 142/53 H 04/13/20 01:01 94 H 04/13/20 01:00 98.6 F 97 H 95 H 16 142/53 H 142/53 H 04/13/20 00:59 100 H 04/13/20 00:31 86 29 H 04/13/20 00:30 85 29 H 112/48 L 04/13/20 00:16 87 27 H 04/13/20 00:15 92 H 29 H 109/52 L 04/13/20 00:01 93 H 26 H 04/13/20 00:00 88 26 H 103/42 L 04/12/20 23:45 87 25 H 98/41 L 04/12/20 23:31 94 H 28 H 102/35 L 04/12/20 23:30 93 H 30 H 04/12/20 23:15 95 H 28 H 04/12/20 23:01 87 30 H 04/12/20 23:00 95 H 32 H 98/68 L 04/12/20 22:46 99 H 36 H 04/12/20 22:45 102 H 29 H 118/49 L 04/12/20 22:31 98 H 35 H 04/12/20 22:30 106 H 26 H 130/59 L 04/12/20 22:16 105 H 28 H 04/12/20 22:15 109 H 27 H 129/71 04/12/20 22:00 110 H 22 166/69 H 04/12/20 21:53 33 H 04/12/20 21:32 122 H 38 H 143/68 H 04/12/20 21:23 33 H 04/12/20 21:17 124 H 33 H 04/12/20 20:53 121 H 33 H 04/12/20 20:47 109 H 54 H 178/89 H 04/12/20 20:31 98.2 F 121 H 33 H 178/89 H Pulse Ox Pulse Ox 04/13/20 02:01 95 04/13/20 01:58 97 04/13/20 01:05 91 04/13/20 01:03 90 04/13/20 01:01 91 04/13/20 01:00 91 04/13/20 00:59 92 04/13/20 00:31 95 04/13/20 00:30 95 04/13/20 00:16 93 04/13/20 00:15 94 04/13/20 00:01 91 04/13/20 00:00 91 04/12/20 23:45 95 04/12/20 23:31 96 04/12/20 23:30 96 04/12/20 23:15 04/12/20 23:01 95 04/12/20 23:00 95 04/12/20 22:46 94 04/12/20 22:45 94 04/12/20 22:31 93 04/12/20 22:30 92 04/12/20 22:16 94 04/12/20 22:15 94 04/12/20 22:00 92 04/12/20 21:53 94 04/12/20 21:32 94 04/12/20 21:23 94 04/12/20 21:17 94 04/12/20 20:53 95 04/12/20 20:47 87 L 04/12/20 20:31 88 L PG Care Time/CCT Total # of Minutes Spent Total Time Spent with Patient: Total time spent is greater than 50% in coordination of care (as documented) at patient's floor/unit and/or counseling patient: Coding Level of Care Code 95142 Subseq Hosp Care Lv 3 Diagnoses Acute hypoxemic respiratory failure J96.01 Pneumonia J18.9 Laterality: right Lung location: lower lobe of lung Pneumonia type: due to unspecified organism Smoker F17.200 COPD (chronic obstructive pulmonary disease) J44.9 Chronic pain G89.29 Atrial fibrillation I48.91 Supratherapeutic INR R79.1 BPH (benign prostatic hyperplasia) N40.0 Anxiety F41.9 Chronic anticoagulation Z79.01 DVT prophylaxis Z29.9 (1) Pneumonia Laterality: right Lung location: lower lobe of lung Pneumonia type: due to unspecified organism Qualified Code(s): J18.9 - Pneumonia, unspecified organism
--- NOTE | 2020-04-13 07:45 | Electrocardiogram Report ---
Test Reason : Blood Pressure : / mmHG Vent. Rate : 111 BPM Atrial Rate : 136 BPM P-R Int : 000 ms QRS Dur : 110 ms QT Int : 288 ms P-R-T Axes : 000 -15 144 degrees QTc Int : 391 ms Atrial fibrillation with rapid ventricular response Voltage criteria for left ventricular hypertrophy Marked ST abnormality, possible lateral subendocardial injury vs LVH Abnormal ECG No previous ECGs available Confirmed by Royal Barriga ([id number]) on 04/13/2020 7:45:06 AM Referred By: REFERRED SELF Confirmed By:Jamel Barriga
--- NOTE | 2020-04-13 07:58 | XRay Report ---
XR chest 1V portable CLINICAL HISTORY: SEPSIS COMPARISON STUDY: No previous studies for comparison. FINDINGS: The heart is enlarged. There are postsurgical changes of midline sternotomy. There are bila teral pulmonary airspace opacities suspicious for a multifocal pneumonia. There are postsurgical fleming ges of aortic valve endograft. Left-sided pleural calcifications are visualized.[ IMPRESSION: 1. Cardiomegaly and bilateral pulmonary airspace opacities consistent with a multifocal pneumonia. Cl inical and radiographic follow-up is recommended. ACT 112: Negative or not required by law. Electronically signed by: Evelio Call M.D. 04/13/2020 7:56 AM
[2020-04-13] MEDS: FINASTERIDE 5 MG TAB PO SCH (08:55)
[2020-04-13] MEDS: methylPREDNISolone 40 MG in SYRINGE 0 ML IV SCH ×2 (08:55→21:27)
[2020-04-13] MEDS: FLUTICASONE/VILANTEROL 200/25MCG 14 PUFFS/INHALER INH SCH (08:55)
[2020-04-13] MEDS: METOPROLOL SUCC 25MG EXT REL TAB PO SCH (08:55)
[2020-04-13] MEDS: ROSUVASTATIN CALCIUM 10 MG TAB PO SCH (08:56)
[2020-04-13] MEDS: AMIODARONE 200 MG TAB PO SCH (08:56)
--- NOTE | 2020-04-13 08:56 | XRay Report ---
XR chest 1V portable CLINICAL HISTORY: Pneumonia COMPARISON STUDY: 04/12/2020 FINDINGS: There are persistent multifocal pulmonary airspace opacities consistent with a multifocal p neumonia. The heart remains enlarged. There are postsurgical changes of a midline sternotomy. There i s aortic valve stent graft. Left-sided pleural calcifications are again evident.[ IMPRESSION: Multifocal airspace opacities, perhaps minimally progressive when compared with the prior study. The findings are consistent with a multifocal pneumonia. ACT 112: Negative or not required by law. Electronically signed by: Evelio Call M.D. 04/13/2020 8:55 AM
[2020-04-13] MEDS ORDERED: POLYETHYLENE (MIRALAX) 17 GM PACK PO SCH (09:00)
[2020-04-13] MEDS: LORazepam 0.5 MG TAB PO PRN ×3 (10:27→23:03)
[2020-04-13] MEDS: fentaNYL 75 MCG/HR TDSY TD SCH (10:27)
[2020-04-13] MEDS: HYDROcodone/ACETAMINOPHEN 10/325 TAB PO PRN ×3 (10:27→23:02)
[2020-04-13] MEDS: levoFLOXacin/D5W 750 MG/150 ML BAG IV SCH (10:27)
--- NOTE | 2020-04-13 10:31 | CT Scan Report ---
CT chest wo con CT DOSE: 509.18 mGy.cm CLINICAL HISTORY: 84 years-old Male with eval for rll collapse. Acute shortness of breath with right lung volume loss TECHNIQUE: Multiaxial CT images of the chest were performed without contrast. A dose lowering techni que was utilized adhering to the principles of ALARA. COMPARISON: Chest radiograph of same day FINDINGS: Moderate to marked cardiomegaly with prior median sternotomy and prosthetic aortic valve. E xtensive [place] coronary artery and thoracic aortic calcifications. Mitral annular calcifications are also present. Ectasia of the ascending thoracic aorta, 3.9 x 3.9 cm. Dilated main pulmonary artery, 3.7 cm. Enlarged paratracheal lymph nodes measure up to 2.5 x 1.5 cm. Pathologically enlarged subcari nal lymph nodes measure up to 3.3 x 1.3 cm. Prominent bilateral hilar lymph nodes are also present. Small bilateral pleural effusions. Emphysema. No pneumothorax. Scattered multifocal groundglass and a lveolar opacities are noted with dense consolidation most pronounced within the basal right lower lob e and right middle lobe with air bronchograms. Tracheobronchial secretions are noted with bibasilar m ucous plugging. Mild intralobular septal thickening. Postoperative changes from prior pulmonary resec tion of the left upper lobe with adjacent pleural thickening and pleural calcifications. No acute process of the imaged upper abdomen. Trace perisplenic ascites. Mild generalized body wall e analy. Degenerative changes of the spine and shoulders. Unchanged cortical thickening and sclerosis in volves the lateral left ribs, most pronounced in the left fourth rib. IMPRESSION: 1. Multilobar groundglass and alveolar opacities with dense consolidation and air bronchograms within the right lung base compatible with multifocal pneumonia. 2. Small pleural effusions with mild intralobular septal thickening suggestive of superimposed mild p ulmonary edema. 3. Tracheobronchial secretions with bibasilar mucous plugging. 4. Moderate to marked cardiomegaly with prior median sternotomy and aortic prosthesis 5. Emphysema with suggested pulmonary artery hypertension. ACT 112: Negative or not required by law. Electronically signed by: Rodolfo Hyatt M.D. 04/13/2020 10:30 AM
[2020-04-13] MEDS ORDERED: VANCOMYCIN HCL 750 MG in SODIUM CHLORIDE 0.9% 250 ML IV SCH (14:00)
[2020-04-13] MEDS: CHECK fentaNYL PATCH PLACEMENT SCH (16:07)
--- NOTE | 2020-04-13 18:37 | Hospitalist Progress Note ---
Date of Service April 13, 2020 Assessment & Plan (1) Acute hypoxemic respiratory failure: secondary to pneumonia and copd, marked leukocytosis We are able to wean the patient from BiPAP dexamethasone 10 mg, and a dose of Zosyn in the ED, continues on levofloxacin -IV Solu-Medrol 40 mg twice daily * Sepsis POA E/B SOFA score >2 and +3/4SIRS criteria pt has a history of lung cancer with mets, treated years ago with chemo, denies XRT and possibly had a liver resection, will check CT chest to eval for recurrence and also if pt may have effusion COPD Patient is a chronic smoker with a history of COPD per family is well controlled on outpatient meds, continue these medications while hospitalized. -Continue home inhalers-duonebs q4h #Active smoker Patient is a current smoker, this likely contributed to his current presentation, strongly recommend smoking cessation counseling to the patient. (2) Pneumonia: marked leukocytosis is on gram negative and atypical coverage, has mucus plugging suggested on CT will have mucinex and chest PT (3) Smoker: (4) COPD (chronic obstructive pulmonary disease): (5) Chronic pain: Patient reports a history of chronic back pain that was previously controlled on fentanyl transdermal patch and hydrocodone as needed. Anxiety, Patient is a longstanding history of temazepam 30 mg p.o. at bedtime, given the effect on respiratory depression, this is held and he will be offered as needed 0.5 mg IV Ativan order in (6) Atrial fibrillation: Amiodarone and warfarin, supratherapeutic INR, holding warfarin and follow (7) Supratherapeutic INR: holding coumadin and following INR (8) BPH (benign prostatic hyperplasia): -Continue finasteride (9) Anxiety: (10) Chronic anticoagulation: (11) DVT prophylaxis: Code Status: Conditional code, no cardiac defibrillation or CPR, however requests intubation and ventilation DVT PPX: On Coumadin, holding given supratherapeutic INR Admission and Anticipated Discharge Date Admission Date: April 12, 2020 Results & Data Results & Data ([facility]) Vital Signs (Past 12 Hours) Vital Signs Temp Pulse Pulse Pulse Resp BP Pulse Ox 04/13/20 16:00 98.2 F 76 76 21 148/41 H 04/13/20 12:03 78 20 94 04/13/20 11:58 98.2 F 72 23 116/49 L 94 04/13/20 11:07 95 04/13/20 08:37 84 20 95 04/13/20 08:00 98.4 F 76 79 21 135/47 L 96 Pulse Ox 04/13/20 16:00 04/13/20 12:03 04/13/20 11:58 04/13/20 11:07 04/13/20 08:37 04/13/20 08:00 96 PG Care Time/CCT Total # of Minutes Spent Total Time Spent with Patient: Total time spent is greater than 50% in coordination of care (as documented) at patient's floor/unit and/or counseling patient: Coding Level of Care Code None Diagnoses Acute hypoxemic respiratory failure J96.01 Pneumonia J18.9 Laterality: right Lung location: lower lobe of lung Pneumonia type: due to unspecified organism Smoker F17.200 COPD (chronic obstructive pulmonary disease) J44.9 Chronic pain G89.29 Atrial fibrillation I48.91 Supratherapeutic INR R79.1 BPH (benign prostatic hyperplasia) N40.0 Anxiety F41.9 Chronic anticoagulation Z79.01 DVT prophylaxis Z29.9 (1) Pneumonia Laterality: right Lung location: lower lobe of lung Pneumonia type: due to unspecified organism Qualified Code(s): J18.9 - Pneumonia, unspecified organism
[2020-04-13] MEDS ORDERED: IPRATROPIUM BROMIDE HFA INHALER INH PRN (19:22)
[2020-04-13] MEDS ORDERED: ALBUTEROL HFA 8 GM INHALER INH PRN (19:22)
[2020-04-13] MEDS: ALBUTEROL HFA 8 GM INHALER INH SCH (19:53)
[2020-04-13] MEDS: IPRATROPIUM BROMIDE HFA INHALER INH SCH (19:53)
[2020-04-13] MEDS: guaiFENesin 600 MG TABCR PO SCH (21:27)
[2020-04-14] MEDS: CHECK fentaNYL PATCH PLACEMENT SCH ×3 (00:03→17:00)
[2020-04-14] MEDS: LACTATED RINGER'S 1,000 ML IV SCH ×2 (01:02→18:57)
--- NOTE | 2020-04-14 01:39 | Billing Data ---
Date of Service April 14, 2020 Coding Level of Care Code 20410 Initial Inpt Care Lvl 3
[2020-04-14 04:26] LABS: Hematocrit (blood only) 31.8 % (42-52); Hemoglobin 10.2 g/dL (14.0-18.0); Mean Corpuscular Hemoglobin 31.7 pg (25-34); Mean Corpuscular Hgb Conc 32.1 g/dL (32-36); Mean Corpuscular Volume 98.8 fL (80-100); Mean Platelet Volume 9.9 fL (7.4-10.4); Platelet Count 302 K/uL (130-400); RDW Coefficient of Variation 17.4 % (11.5-14.5); RDW Standard Deviation 62.5 fL (36.4-46.3); Red Blood Count 3.22 M/uL (4.7-6.1); White Blood Count 10.83 K/uL (4.8-10.8)
[2020-04-14 04:40] LABS: BUN Creatinine Ratio 39.8 (10-20); Calcium 8.4 mg/dl (8.5-10.1); Creatinine Clr Calc Pharmacy 105.3 ml/min; Est GFR (African American) 120.2; Est GFR (Non-African American) 103.7; Potassium 4.3 mmol/L (3.5-5.1)
[2020-04-14] MEDS: HYDROcodone/ACETAMINOPHEN 10/325 TAB PO PRN ×2 (04:51→18:32)
[2020-04-14] MEDS: LORazepam 0.5 MG TAB PO PRN ×2 (04:51→18:36)
[2020-04-14] MEDS: ROSUVASTATIN CALCIUM 10 MG TAB PO SCH (09:00)
[2020-04-14] MEDS: levoFLOXacin/D5W 750 MG/150 ML BAG IV SCH (09:00)
[2020-04-14] MEDS: FINASTERIDE 5 MG TAB PO SCH (09:00)
[2020-04-14] MEDS: METOPROLOL SUCC 25MG EXT REL TAB PO SCH (09:00)
[2020-04-14] MEDS: AMIODARONE 200 MG TAB PO SCH (09:00)
[2020-04-14] MEDS: guaiFENesin 600 MG TABCR PO SCH ×2 (09:00→22:11)
--- NOTE | 2020-04-14 17:22 | Hospitalist Progress Note ---
Date of Service April 14, 2020 Assessment & Plan (1) Acute hypoxemic respiratory failure: secondary to pneumonia and copd, marked leukocytosis We are able to wean the patient from BiPAP dexamethasone 10 mg, and a dose of Zosyn in the ED, continues on levofloxacin -IV Solu-Medrol 40 mg twice daily continues * Sepsis POA E/B SOFA score >2 and +3/4SIRS criteria pt has a history of lung cancer with mets, treated years ago with chemo, denies XRT and possibly had a liver resection, will check CT chest to eval for recurrence and also if pt may have effusion COPD Patient is a chronic smoker with a history of COPD per family is well controlled on outpatient meds, continue these medications while hospitalized. -Continue home inhalers-duonebs q4h #Active smoker Patient is a current smoker, this likely contributed to his current presentation, strongly recommend smoking cessation counseling to the patient. (2) Pneumonia: marked leukocytosis has resolved he remains on is on gram negative and atypical coverage, has mucus plugging suggested on CT will have mucinex and chest PT (3) Smoker: (4) COPD (chronic obstructive pulmonary disease): (5) Chronic pain: Patient reports a history of chronic back pain that was previously controlled on fentanyl transdermal patch and hydrocodone as needed. Anxiety, Patient is a longstanding history of temazepam 30 mg p.o. at bedtime, given the effect on respiratory depression, this is held and he will be offered as needed 0.5 mg IV Ativan order On 04/14 we are adding scheduled Tylenol and Lidoderm patch. (6) Atrial fibrillation: Amiodarone and warfarin, supratherapeutic INR, holding warfarin and follow (7) Supratherapeutic INR: holding coumadin and following INR (8) BPH (benign prostatic hyperplasia): -Continue finasteride (9) Anxiety: (10) Chronic anticoagulation: Admission and Anticipated Discharge Date Admission Date: April 12, 2020 Subjective Patient is doing well he is mostly complaining of about his back being sore. His breathing is still slightly labored and he has an abnormal chest exam. He however will be transitioned off telemetry to medical floor Review of Systems Review of Systems: Moderate distress and fatigue no headache, blurry or double vision no speech or swallowing issues no chest pain, pressure or palpitations Improving shortness of breath,cough cough or wheezes no abdominal pain, nausea or vomiting, diarrhea or constipation no dysuria, hematuria or frequency no focal joint pain or swelling Persisting chronic back pain, CVA tenderness or radicular pain no bruising, bleeding or rashes no focal signs of weakness or numbness or altered sensation no complaints of anxiety or depression.. Physical Exam Physical Exam: The patient appeared thin and with moderate respiratory distress Vital signs as documented. Head exam is normocephalic atraumatic no scleral icterus Neck is without JVD, thyromegaly, or carotid bruits. Lungs are poor air movement with bibasilar rales left greater than right Cardiac exam, Rhythm is regular.. Systolic ejection murmur is heard Abdominal exam reveals normal bowel sounds, soft non tender, no masses Extremities are nonedematous and both pedal pulses are present Neurologic exam is alert and oriented, no focal loss of strength or sensation Skin is without bruises or rashes Psychologically is without concerns for anxiety or depression. PG Care Time/CCT Total # of Minutes Spent Total Time Spent with Patient: Total time spent is greater than 50% in coordination of care (as documented) at patient's floor/unit and/or counseling patient: Coding Level of Care Code 86061 Subseq Hosp Care Lvl 3 Diagnoses Acute hypoxemic respiratory failure J96.01 Pneumonia J18.9 Laterality: right Lung location: lower lobe of lung Pneumonia type: due to unspecified organism Smoker F17.200 COPD (chronic obstructive pulmonary disease) J44.9 Chronic pain G89.29 Atrial fibrillation I48.91 Supratherapeutic INR R79.1 BPH (benign prostatic hyperplasia) N40.0 Anxiety F41.9 Chronic anticoagulation Z79.01 (1) Pneumonia Laterality: right Lung location: lower lobe of lung Pneumonia type: due to unspecified organism Qualified Code(s): J18.9 - Pneumonia, unspecified organism
[2020-04-14] MEDS ORDERED: LIDOCAINE 5% 1 PATCH TD ONE (17:30)
[2020-04-14] MEDS: IPRATROPIUM BROMIDE HFA INHALER INH SCH (20:31)
[2020-04-14] MEDS: ALBUTEROL HFA 8 GM INHALER INH SCH (20:31)
[2020-04-14] MEDS: DOCUSATE SODIUM 100 MG CAP PO SCH (22:11)
[2020-04-14] MEDS: POLYETHYLENE (MIRALAX) 17 GM PACK PO SCH (22:11)
[2020-04-14] MEDS: ACETAMINOPHEN 500 MG TAB PO SCH (22:13)
[2020-04-14] MEDS: MoRPHine SULFATE 2 MG/ML CARP IV PRN (23:13)
[2020-04-14] MEDS ORDERED: DICLOFENAC SOD 1% GEL 100 GM TUBE EXT PRN (23:30)
[2020-04-15] MEDS: HYDROcodone/ACETAMINOPHEN 10/325 TAB PO PRN ×3 (00:17→22:13)
[2020-04-15] MEDS: LORazepam 0.5 MG TAB PO PRN ×4 (00:17→15:48)
[2020-04-15] MEDS ORDERED: MELATONIN 3 MG TAB PO PRN (00:26)
[2020-04-15] MEDS: ALBUTEROL HFA 8 GM INHALER INH SCH ×7 (01:10→19:29)
[2020-04-15] MEDS: IPRATROPIUM BROMIDE HFA INHALER INH SCH ×7 (01:10→19:30)
[2020-04-15] MEDS: FLUTICASONE/VILANTEROL 200/25MCG 14 PUFFS/INHALER INH SCH ×2 (01:11→07:52)
[2020-04-15] MEDS: MoRPHine SULFATE 2 MG/ML CARP IV PRN ×3 (03:12→22:48)
[2020-04-15 06:59] LABS: Hematocrit (blood only) 32.9 % (42-52); Hemoglobin 10.8 g/dL (14.0-18.0); Mean Corpuscular Hemoglobin 31.8 pg (25-34); Mean Corpuscular Hgb Conc 32.8 g/dL (32-36); Mean Corpuscular Volume 96.8 fL (80-100); Mean Platelet Volume 9.7 fL (7.4-10.4); Nucleated RBC # (auto) 0.04 K/uL (0-0); Nucleated RBC % (auto) 0.4 %; Platelet Count 319 K/uL (130-400); RDW Coefficient of Variation 17.1 % (11.5-14.5); RDW Standard Deviation 60.1 fL (36.4-46.3); White Blood Count 9.74 K/uL (4.8-10.8)
[2020-04-15 07:14] LABS: INR 2.8 (0.9-1.1); Prothrombin Time 28.2 Seconds (9.0-12.0)
[2020-04-15 07:41] LABS: BUN Creatinine Ratio 39.8 (10-20); Calcium 8.7 mg/dl (8.5-10.1); Creatinine Clr Calc Pharmacy 103.1 ml/min; Est GFR (African American) 119.1; Est GFR (Non-African American) 102.8; Potassium 3.8 mmol/L (3.5-5.1)
[2020-04-15] MEDS: POLYETHYLENE (MIRALAX) 17 GM PACK PO SCH ×2 (07:52→22:12)
[2020-04-15] MEDS: levoFLOXacin/D5W 750 MG/150 ML BAG IV SCH (07:52)
[2020-04-15] MEDS: LIDOCAINE 5% 1 PATCH TD SCH (07:52)
[2020-04-15] MEDS: methylPREDNISolone 40 MG in SYRINGE 0 ML IV SCH (07:52)
[2020-04-15] MEDS: METOPROLOL SUCC 25MG EXT REL TAB PO SCH (07:53)
[2020-04-15] MEDS: AMIODARONE 200 MG TAB PO SCH (07:53)
[2020-04-15] MEDS: ROSUVASTATIN CALCIUM 10 MG TAB PO SCH (07:53)
[2020-04-15] MEDS: FINASTERIDE 5 MG TAB PO SCH (07:53)
[2020-04-15] MEDS: CHECK fentaNYL PATCH PLACEMENT SCH ×3 (07:53→16:31)
[2020-04-15] MEDS: DOCUSATE SODIUM 100 MG CAP PO SCH ×2 (07:53→22:13)
[2020-04-15] MEDS: ACETAMINOPHEN 500 MG TAB PO SCH ×2 (07:54→13:17)
[2020-04-15] MEDS: guaiFENesin 600 MG TABCR PO SCH ×2 (08:35→22:13)
--- NOTE | 2020-04-15 08:46 | Hospitalist Progress Note ---
Date of Service April 15, 2020 Assessment & Plan (1) Acute hypoxemic respiratory failure: secondary to pneumonia and copd, marked leukocytosis We are able to wean the patient from BiPAP dexamethasone 10 mg, and a dose of Zosyn in the ED, continues on levofloxacin tapering steroids to po * Sepsis POA E/B SOFA score >2 and +3/4SIRS criteria pt has a history of lung cancer with mets, treated years ago with chemo, denies XRT and possibly had a liver resection, will check CT chest to eval for recurrence and also if pt may have effusion COPD Patient is a chronic smoker with a history of COPD per family is well controlled on outpatient meds, continue these medications while hospitalized. -Continue home inhalers-duonebs q4h #Active smoker Patient is a current smoker, this likely contributed to his current presentation, strongly recommend smoking cessation counseling to the patient. (2) Pneumonia: marked leukocytosis has resolved he remains on is on gram negative and atypical coverage, has mucus plugging suggested on CT will have mucinex and chest PT (3) Smoker: (4) COPD (chronic obstructive pulmonary disease): (5) Chronic pain: Patient reports a history of chronic back pain that was previously controlled on fentanyl transdermal patch and hydrocodone as needed. Anxiety, Patient is a longstanding history of temazepam 30 mg p.o. at bedtime, given the effect on respiratory depression, this is held and he will be offered as needed 0.5 mg IV Ativan order On dded Lidoderm patch. discussed pain managment pt stated that it did not help in the past (6) Atrial fibrillation: Amiodarone and warfarin, inr now 2.8 will restart his coumadin (7) Supratherapeutic INR: resolved (8) BPH (benign prostatic hyperplasia): -Continue finasteride (9) Anxiety: (10) Chronic anticoagulation: Admission and Anticipated Discharge Date Admission Date: April 12, 2020 Subjective Patient is doing well he is mostly complaining of about his back being sore. His breathing is still slightly labored and he has an abnormal chest exam. He however is clinically overall improving Review of Systems Review of Systems: Moderate distress and fatigue no headache, blurry or double vision no speech or swallowing issues no chest pain, pressure or palpitations Improving shortness of breath,cough cough or wheezes no abdominal pain, nausea or vomiting, diarrhea or constipation no dysuria, hematuria or frequency no focal joint pain or swelling Persisting chronic back pain, CVA tenderness or radicular pain no bruising, bleeding or rashes no focal signs of weakness or numbness or altered sensation no complaints of anxiety or depression.. Physical Exam Physical Exam: The patient appeared thin and with moderate respiratory distress Vital signs as documented. Head exam is normocephalic atraumatic no scleral icterus Neck is without JVD, thyromegaly, or carotid bruits. Lungs are poor air movement with bibasilar rales left greater than right Cardiac exam, Rhythm is regular.. Systolic ejection murmur is heard Abdominal exam reveals normal bowel sounds, soft non tender, no masses Extremities are nonedematous and both pedal pulses are present Neurologic exam is alert and oriented, no focal loss of strength or sensation Skin is without bruises or rashes Psychologically is without concerns for anxiety or depression. Results & Data Results & Data ([facility]) Vital Signs (Past 12 Hours) Vital Signs Temp Pulse Resp BP Pulse Ox 04/15/20 07:30 97.9 F 88 18 166/72 H 97 04/15/20 07:14 88 18 97 04/14/20 23:00 97.5 F L 85 20 176/54 H 95 PG Care Time/CCT Total # of Minutes Spent Total Time Spent with Patient: Total time spent is greater than 50% in coordination of care (as documented) at patient's floor/unit and/or counseling patient: Coding Level of Care Code 78499 Subseq Hosp Care Lvl 2 Diagnoses Acute hypoxemic respiratory failure J96.01 Pneumonia J18.9 Laterality: right Lung location: lower lobe of lung Pneumonia type: due to unspecified organism Smoker F17.200 COPD (chronic obstructive pulmonary disease) J44.9 Chronic pain G89.29 Atrial fibrillation I48.91 Supratherapeutic INR R79.1 BPH (benign prostatic hyperplasia) N40.0 Anxiety F41.9 Chronic anticoagulation Z79.01 (1) Pneumonia Laterality: right Lung location: lower lobe of lung Pneumonia type: due to unspecified organism Qualified Code(s): J18.9 - Pneumonia, unspecified organism
[2020-04-15] MEDS ORDERED: NURSING DECISION MEDICATION ONE (12:34)
[2020-04-15] MEDS ORDERED: SODIUM CHLORIDE 0.65% NA SOLN 45 ML (OCEAN) PRN (12:41)
[2020-04-15] MEDS ORDERED: WARFARIN SOD 4 MG TAB PO SCH (16:00)
[2020-04-15] MEDS ORDERED: HYDROcodone/ACETAMINOPHEN 10/325 TAB PO ONE (16:45)
[2020-04-16] MEDS: LORazepam 0.5 MG TAB PO PRN ×3 (00:07→10:17)
[2020-04-16] MEDS: CHECK fentaNYL PATCH PLACEMENT SCH ×2 (00:08→07:33)
[2020-04-16] MEDS: MoRPHine SULFATE 2 MG/ML CARP IV PRN ×3 (03:11→13:35)
[2020-04-16] MEDS: HYDROcodone/ACETAMINOPHEN 10/325 TAB PO PRN ×2 (04:38→10:17)
[2020-04-16 06:59] LABS: Hematocrit (blood only) 36.6 % (42-52); Hemoglobin 12.1 g/dL (14.0-18.0); Mean Corpuscular Hemoglobin 31.8 pg (25-34); Mean Corpuscular Hgb Conc 33.1 g/dL (32-36); Mean Corpuscular Volume 96.3 fL (80-100); Mean Platelet Volume 9.9 fL (7.4-10.4); Platelet Count 339 K/uL (130-400); RDW Standard Deviation 59.4 fL (36.4-46.3); White Blood Count 9.19 K/uL (4.8-10.8)
[2020-04-16 07:13] LABS: INR 2.4 (0.9-1.1); Prothrombin Time 24.2 Seconds (9.0-12.0)
[2020-04-16 07:22] LABS: BUN Creatinine Ratio 30.3 (10-20); Calcium 8.3 mg/dl (8.5-10.1); Creatinine Clr Calc Pharmacy 88.1 ml/min; Est GFR (African American) 111.7; Est GFR (Non-African American) 96.4; Potassium 3.7 mmol/L (3.5-5.1)
[2020-04-16] MEDS: fentaNYL 75 MCG/HR TDSY TD SCH (07:31)
[2020-04-16] MEDS: POLYETHYLENE (MIRALAX) 17 GM PACK PO SCH (07:32)
[2020-04-16] MEDS: LIDOCAINE 5% 1 PATCH TD SCH (07:32)
[2020-04-16] MEDS: FLUTICASONE/VILANTEROL 200/25MCG 14 PUFFS/INHALER INH SCH (07:33)
[2020-04-16] MEDS: guaiFENesin 600 MG TABCR PO SCH (07:33)
[2020-04-16] MEDS: FINASTERIDE 5 MG TAB PO SCH (07:34)
[2020-04-16] MEDS: METOPROLOL SUCC 25MG EXT REL TAB PO SCH (07:34)
[2020-04-16] MEDS: DOCUSATE SODIUM 100 MG CAP PO SCH (07:34)
[2020-04-16] MEDS: AMIODARONE 200 MG TAB PO SCH (07:34)
[2020-04-16] MEDS: ROSUVASTATIN CALCIUM 10 MG TAB PO SCH (07:34)
--- NOTE | 2020-04-16 07:39 | XRay Report ---
XR lumbar spine 2-3V CLINICAL HISTORY: back pain COMPARISON STUDY: No previous studies for comparison. FINDINGS: There is gaseous prominence of large and small bowel loops. There are no transition zones. This could indicate an ileus. The bones are osteopenic. There are multilevel degenerative changes. Th ere are minor multilevel endplate deformities, likely chronic. IMPRESSION: 1. Minor multilevel vertebral body endplate deformities likely chronic. No definite acute fractures. Multilevel degenerative change. ACT 112: Negative or not required by law. Electronically signed by: Evelio Call M.D. 04/16/2020 7:38 AM
[2020-04-16] MEDS: ALBUTEROL HFA 8 GM INHALER INH SCH ×2 (07:49→11:45)
[2020-04-16] MEDS: IPRATROPIUM BROMIDE HFA INHALER INH SCH ×2 (07:49→11:45)
[2020-04-16] MEDS: methylPREDNISolone 40 MG in SYRINGE 0 ML IV SCH (09:01)
[2020-04-16] MEDS ORDERED: levoFLOXacin 750 MG TAB PO SCH (11:00)
--- NOTE | 2020-04-16 13:44 | Discharge Summary ---
Date of Service April 16, 2020 Principal Diagnosis Pt is feeling better overall. He would like to go home. Tolerating PO without issue. Pt denies fever, SOB, chest pain, abd pain, n/v/c/d, LE pain or swelling. Discharge Exam Constitutional WD/WN, vitals as above Eyes normal visual booth by confrontation and + anicteric sclerae Neck normal visual inspection and trachea midline Respiratory normal respiratory effort, lungs clear to auscultation Cardiovascular Rate/Rhythm: regular rate and regular rhythm Gastrointestinal (Abdomen) Inspection/Auscultation: abdomen not distended Percussion/Palpation: abdomen soft; abdomen nontender Musculoskeletal Head/Neck/Chest: normocephalic and head atraumatic Skin no rashes, warm and dry Neurologic awake; not confused Speech / Cognition: normal speech Psychiatric Orientation: alert, oriented to person and cooperative Speech: normal rate/rhythm/volume of speech Affect: euthymic affect Discharge Data Allergies Allergy/AdvReac Type Severity Reaction Status Date / Time No Known Allergies Allergy Unverified 04/12/20 22:36 Consultations 04/12/20 22:14 ED Decision to Admit Stat 04/13/20 01:05 Consult Case Management - Discharge Planning Routine Ordered Studies 04/13/20 09:19 CT chest wo con Routine Hospital Course (1) Acute hypoxemic respiratory failure: secondary to pneumonia and copd, marked leukocytosis We are able to wean the patient from BiPAP dexamethasone 10 mg, and a dose of Zosyn in the ED, continues on levofloxacin and will finish course as outpt (2 more days) tapering steroids to po and finish taper as outpt * Sepsis POA E/B SOFA score >2 and +3/4SIRS criteria pt has a history of lung cancer with mets, treated years ago with chemo, denies XRT and possibly had a liver resection CT chest neg for recurrence, but was noted with PNA and bibasilar mucous plugging COPD Patient is a chronic smoker with a history of COPD per family is well controlled on outpatient meds, continue these medications while hospitalized. -Continue home inhalers-duonebs q4h #Active smoker Patient is a current smoker, this likely contributed to his current presentation, strongly recommend smoking cessation counseling to the patient. (2) Pneumonia: marked leukocytosis has resolved he remains on is on gram negative and atypical coverage, has mucus plugging suggested on CT will have mucinex and chest PT (3) Smoker: (4) COPD (chronic obstructive pulmonary disease): (5) Chronic pain: Patient reports a history of chronic back pain that was previously controlled on fentanyl transdermal patch and hydrocodone as needed. Anxiety, Patient is a longstanding history of temazepam 30 mg p.o. at bedtime, given the effect on respiratory depression, this is held and he will be offered as needed 0.5 mg IV Ativan order On dded Lidoderm patch. discussed pain managment pt stated that it did not help in the past (6) Atrial fibrillation: Amiodarone and warfarin, inr now 2.8 will restart his coumadin INR 2.4 on d/c with warfarin at 4mg QD (vs 3mg/6mg on admission) Will d/c with more simplified regimen and overall slightly less total mg warfarin weekly given elevated INR on presentation Check INR on 04/18 with [facility] (7) Supratherapeutic INR: resolved with holding warfarin As above (8) BPH (benign prostatic hyperplasia): -Continue finasteride (9) Anxiety: (10) Chronic anticoagulation: Total Time Total Time Spent Total Time Spent (In Minutes): >30 Discussed with son via phone prior to d/c who agrees with current plan Total Time Includes: Examination of the Patient, Discharge Planning, Medication Reconciliation, Communication With Other Providers and Other Discharge Plan Discharge Items Patient Disposition: Home - Home Health Services Reason For Visit: PNA, HYPOXIA Discharge Diagnosis: Pneumonia Condition on Discharge: Good Activity: Resume your previous activity Non-emergency contact: Primary Care Provider Call non-emergency contact if: you have any medication questions and your symptoms worsen Follow-up/Referrals: Dominic Phelps PA-C [Primary Care Provider] - 04/18/20 3:30 pm Diet: Regular Addtl Attending Provider Instructions: You should be seen by your primary care doctor in the next 2-3 days Home Health Nursing should draw a PT/INR on 04/18/20 with results sent to PCP Pending Studies at Discharge: No Stand-Alone Forms: [employer], Smoking Cessation Medications and DC Order Prescriptions: New levofloxacin 750 mg Tablet 750 mg PO DAILY@1100 Qty: 2 RF: 0 warfarin [Jantoven] 4 mg Tablet 4 mg PO DAILY@1600 Qty: 30 RF: 0 guaifenesin [Mucinex] 600 mg Tablet Extended Release 12hr 1,200 mg PO Q12 7 Days Qty: 28 RF: 0 prednisone 20 mg tablet 20 mg PO DAILY Qty: 8 RF: 0 Continued fluticasone propion-salmeterol 250-50 mcg/dose blister with device 1 ea INHALATION BID RF: 0 hydrocodone-acetaminophen 10-325 mg tablet 1 tab PO Q6 PRN (Reason: Pain) RF: 0 fentanyl 75 mcg/hr patch 72 hour 1 patch topical [id number] RF: 0 finasteride 5 mg tablet 5 mg PO DAILY RF: 0 amiodarone 200 mg tablet 200 mg PO DAILY RF: 0 temazepam [Restoril] 30 mg capsule 30 mg PO HS RF: 0 metoprolol succinate [Toprol XL] 25 mg tablet extended release 24 hr 25 mg PO DAILY RF: 0 rosuvastatin 10 mg tablet 10 mg PO DAILY RF: 0 Discontinued warfarin [Jantoven] 3 mg tablet 6 mg PO TUTH RF: 0 warfarin [Jantoven] 3 mg tablet 3 mg PO SUMOWEFRSA RF: 0 Discharge Orders: Discharge Order (Routine); Ordered 04/16/20 Ordered By: Eugenie Loyd Admission Data Admit Date/Time: 04/12/20 23:38 Attending Provider: Eugenie Loyd Admit Provider: Mike Balderas I. Primary Care Provider: Dominic Phelps Other Providers: Amado Hernandez Other Interventions: Discharge Summary Assessment (RN) Last Done: 04/16/20 13:40 Coding Level of Care Code D/C Day Management >30 mins Diagnoses Acute hypoxemic respiratory failure J96.01 Pneumonia J18.9 Laterality: right Lung location: lower lobe of lung Pneumonia type: due to unspecified organism Smoker F17.200 COPD (chronic obstructive pulmonary disease) J44.9 Chronic pain G89.29 Atrial fibrillation I48.91 Supratherapeutic INR R79.1 BPH (benign prostatic hyperplasia) N40.0 Anxiety F41.9 Chronic anticoagulation Z79.01
== END 2020-04-16 15:50 | disposition home health service (06) | DRG 871 ==
LOC: ED 20:31 → SUATTDRO 23:38 → 1E 23:38 → 2W 04-14 09:20